=== PATIENT | female | born 1960 | race Caucasian/White ===

== ENCOUNTER → 2018-02-24 | Outpatient (CLI) | payer OTHER ==
[~2018-02-24] MED LIST: AMIT10 PO; AMIT25 PO; ASCO500 PO; CALGLU500 PO; CIPR500 PO; Cipro500 MG PO; Crestor20 MG PO; ENAL10 PO; ESOM20 PO; ESTR.1TPW TOP; Flagyl500 MG PO; HYDR1TAB94 PO; MELO7.5 PO; METO10 PO; METR500 PO; MULVITB&C PO; MULVITMIND PO; MULVITMINE PO; NAPR500 PO; ONDA4ODT MM; PANT40 PO; PROG100 PO; RALO60 PO; ROSU10TA PO; VITAMIN D31000 UNIT PO; ZINC15 PO; Zofran Odt4 MG SL
[2018-02-27 14:07] LABS: HPV 16 Negative (Negative); HPV 18 Negative (Negative); HPV OTHER HR TYPES Negative (Negative)
== END | disposition home or self-care (01) ==
LOC: LAB SHORT 13:12 → LAB 13:12
PROVIDERS: Nurse Practitioner Women's Health
DX: Z12.4 Encounter for screening for malignant neoplasm of cervix (principal); Z91.89 Other specified personal risk factors, not elsewhere classified
CPT/HCPCS: 87624; G0123

== ENCOUNTER → 2020-11-08 | Outpatient (CLI) | payer OTHER | END | disposition home or self-care (01) | LOC: LAB SHORT 10:53 → LAB 10:53 | DX: J01.90 Acute sinusitis, unspecified (principal); Z20.822 Contact with and (suspected) exposure to COVID-19 | CPT/HCPCS: U0003 ==